=== PATIENT | male | born 1995 | race Two or more races ===

== ENCOUNTER 2017-10-15 16:18 | Emergency (ER) | payer MEDICAID ==
[~2017-10-15] VITALS: Ht 177.8 cm; Wt 77.1 kg
[~2017-10-15 16:18] MED LIST: FLONASE1 SPRAYS NASAL; PROMETHAZINE V240 ML ORAL; TESSALON PERLE100 M2 ORAL; ZITHROMAX250 MG ORAL
[2017-10-15 16:36] VITALS: BP 119/75
[2017-10-15] MEDS ORDERED: NKM (16:40)
[2017-10-15] MEDS ORDERED: BENADRYL ALLERG25 M1 PO (17:17)
--- NOTE | 2017-10-15 22:07 | Emergency Room Report ---
History of Present Illness General Chief Complaint: General Complaint Source: Patient Present Illness HPI 22 yo male presents to ER complaining of insomnia and bilateral hand numbness. Patient reports being able to fall asleep awakening early every morning for the past few months. Patient reports using NyQuil fall asleep. Patient reports use of marijuana for relief of symptoms. Patient requesting medication to aid in falling asleep. Patient denies ever taking part in sleep study. Patient does not know if he snores. Patient complains of numbness and tingling in outer digits. Patient denies pain or burning sensation in digits. Patient denies history of injury to arms. Patient states that he does rest his arms on his elbows frequently throughout the day. Patient reports he noticed numbness was worse when sleeping on stomach ; reports mild relief since beginning to sleep on back. Patient denies fever, dizziness, chest pain, shortness of breath. Allergies: Coded Allergies: BANANA (Verified Allergy, Unknown, 10/15/17) Uncoded Allergies: APPLES (Allergy, Unknown, 10/15/17) Patient History Past Medical History: see triage record Past Surgical History: none Social History: Reports: drug use - marijuana Reviewed Nursing Documentation: PMH: Agreed, PSxH: Agreed Nursing Documentation-PMH Past Medical History: No Stated History Review of Systems All Other Systems: negative except mentioned in HPI Physical Exam Vital Signs Date Time Temp Pulse Resp B/P (MAP) Pulse Ox O2 Delivery O2 Flow Rate FiO2 10/15/17 16:36 99.5 59 16 119/75 99 Room Air Sp02 EP Interpretation: reviewed, normal General Appearance: no apparent distress, alert, GCS 15, non-toxic Head: normocephalic, atraumatic Eyes: bilateral eye normal inspection, bilateral eye PERRL ENT: hearing grossly normal, normal pharynx, no angioedema, normal voice, uvula midline Neck: full range of motion, supple/symm/no masses Respiratory: chest non-tender, lungs clear, normal breath sounds, speaking full sentences Cardiovascular #1: regular rate, rhythm, no edema Cardiovascular #2: 2+ radial (R), 2+ radial (L) Musculoskeletal: back normal, gait/station normal, normal range of motion, non- tender Neurologic: alert, oriented x3, responsive, health analyst III-XII nml as tested, motor strength/tone normal, sensory intact, speech normal Skin: normal color, no rash, warm/dry, well hydrated Medical Decision Making PA Attestation is my supervising Physician whom patient management has been discussed with. Diagnostic Impression: Primary Impression: Numbness in both hands Additional Impression: Insomnia ER Course Pt. presents to the ED c/o insomnia and numbness in hands bilaterally. Ddx considered but are not limited to carpal tunnel syndrome, ulnar tunnel syndrome, thoracic outlet syndrome, vascular occlusion. Vital signs: are WNL, pt. is afebrile. ORDERS: none required at this time, the diagnosis is clinical ED INTERVENTIONS: None required at this time. DISCHARGE: -Rx provided for Benadryl to aid in sleep. Patient instructed to follow up with PCP to discuss causes of insomnia and for referral for sleep study. At this time pt. is stable for d/c to home. Will provide printed patient care instructions, and any necessary prescriptions. Care plan and follow up instructions have been discussed with the patient prior to discharge Last Vital Signs Date Time Temp Pulse Resp B/P (MAP) Pulse Ox O2 Delivery O2 Flow Rate FiO2 10/15/17 17:34 99.5 57 18 128/77 96 Room Air Disposition: HOME, SELF-CARE Condition: Stable Scripts Diphenhydramine Hcl (BENADRYL ALLERGY) 25 Mg Tablet 25 MG PO QHS for 7 Days, #7 TAB Prov: Dain Caceres 10/15/17 Referrals: [facility],REFERRING (PCP) Patient Instructions: Insomnia, Carpal Tunnel Syndrome, [id number] Additional Instructions: Followup with primary care provider in 3 -5 days. Take medications as directed. Patient questions asked and answered. ER precautions given, patient instructed to return to ER immediately for any new or worsening of symptoms. Dain Caceres Oct 15, 2017 22:07
== END 2017-10-15 17:45 | disposition home or self-care (01) ==
LOC: EMR 17:20
DX: R20.0 Anesthesia of skin (principal); G47.00 Insomnia, unspecified; Z91.018 Allergy to other foods
CPT/HCPCS: 99283